=== PATIENT | female | born 1980 | race Caucasian/White ===

== ENCOUNTER 2017-12-15 11:32 | Emergency (ER) | payer OTHER ==
[~2017-12-15] VITALS: Ht 157.5 cm; Wt 66.7 kg
[2017-12-15 11:43] VITALS: BP 142/72
--- NOTE | 2017-12-15 12:20 | NUR ---
PATIENT PRESENTS TO ED WITH OS SUDDEN ONSET BLURRED VISION/PAIN . PT STATES . DENIES N/V/D; SKIN IS PINK/WARM/DRY; AAOX4 WITH EVEN AND STEADY GAIT; LUNGS CLEAR BL; HR EVEN AND REGULAR; PT DENIES ANY FEVER, CP, SOB, OR COUGH AT THIS TIME; PATIENT STATES PAIN OF 4/10 AT THIS TIME; VSS; PATIENT POSITIONED FOR COMFORT; HOB ELEVATED; BEDRAILS UP X2; BED DOWN. ER MD MADE AWARE OF PT STATUS.
[2017-12-15] MEDS ORDERED: IBUPROFEN 800 MG TAB PO ONE (12:25)
[2017-12-15 12:50] VITALS: BP 124/69
--- NOTE | 2017-12-15 12:50 | NUR ---
Patient discharged with v/s stable. Written and verbal after care instructions given and explained. Patient verbalized understanding. Ambulatory with steady gait. All questions addressed prior to discharge. Advised to follow up with PMD.
--- NOTE | 2017-12-15 12:50 | NUR ---
PUPILS BRISK REACTIVE TO LIGHT 3MM---NO SUBCONJUNCTIVAL HEMORRHAGE NOTED OR DISCOLORATION
== END 2017-12-15 12:50 | disposition home or self-care (01) ==
LOC: MED 11:32
DX: H53.123 Transient visual loss, bilateral (principal); R51 Headache
CPT/HCPCS: 70450; 99284